=== PATIENT | female | born 1985 | race Caucasian/White ===

== ENCOUNTER 2017-03-10 11:51 | Inpatient (IN) | payer MEDICAID, OTHER ==
[~2017-03-10] VITALS: Ht 160 cm; Wt 72.5 kg
[2017-03-10 11:55] VITALS: BP 110/69; PULSE 84; RESP 18; TEMP 97.8; O2SAT 98
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
[2017-03-10 13:30] VITALS: BP 113/64; PULSE 72; RESP 16; O2SAT 97
[2017-03-10] MEDS ORDERED: ONDANSETRON HCL 4 MG/2 ML VIAL IM ONE (13:30)
[2017-03-10] MEDS ORDERED: SODIUM CHLORIDE 0.9% FLUSH 10 ML FLUSH IVF PRN (13:30)
[2017-03-10] MEDS ORDERED: MORPHINE SULFATE 4 MG/ML INJ IV PUSH ONE (13:30)
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
[2017-03-10] MEDS ORDERED: ONDANSETRON HCL 4 MG/2 ML VIAL IV PUSH ONE (14:00)
[2017-03-10 14:09] LABS: BASOPHIL % 0.1 % (0.0-2.0); EOSINOPHIL % 0.4 % (0.0-4.0); HEMO FLAGS DIFF FINAL; LYMPH % 11.9 % (9.0-44.0); LYMPHOCYTE # 1.5 TH/MM3 (1.0-4.8); MEAN CELL VOLUME 90.3 FL (80.0-100.0); MEAN CORPUSCULAR HEMOGLOBIN 31.6 PG (27.0-34.0); MONO % 7.4 % (0.0-8.0); NEUT % 80.2 % (16.0-70.0); PLATELET COUNT 185 TH/MM3 (150-450); RED BLOOD COUNT 4.43 MIL/MM3 (4.00-5.30); RED CELL DISTRIBUTION WIDTH 12.5 % (11.6-17.2); WHITE BLOOD COUNT 12.4 TH/MM3 (4.0-11.0)
[2017-03-10 14:12] LABS: CHLORIDE 108 MEQ/L (98-107); POTASSIUM 3.7 MEQ/L (3.5-5.1); SODIUM (NA) 142 MEQ/L (136-145)
[2017-03-10 14:16] LABS: APTT (PATIENT) 27.1 SEC (24.3-30.1); INTERNATIONAL NORMALIZED RATIO 0.9 RATIO; PROTHROMBIN TIME - PATIENT 10.3 SEC (9.8-11.6)
[2017-03-10 14:17] LABS: ANION GAP 10 MEQ/L (5-15); BICARBONATE 24.3 MEQ/L (21.0-32.0); BLOOD UREA NITROGEN 10 MG/DL (7-18)
[2017-03-10 14:20] LABS: ALT (GPT) 22 U/L (10-53); AST (GOT) 16 U/L (15-37); GLOMERULAR FILTRATION RATE 82 ML/MIN (>89)
[2017-03-10 14:22] LABS: TOTAL BILIRUBIN ADULT 0.4 MG/DL (0.2-1.0)
[2017-03-10 14:23] LABS: ALKALINE PHOSPHATASE 86 U/L (45-117)
[2017-03-10 14:25] VITALS: BP 113/64; PULSE 81; RESP 16; O2SAT 98
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
[2017-03-10 15:40] VITALS: BP 110/71; PULSE 89; RESP 16; O2SAT 100
[2017-03-10] MEDS ORDERED: ONDANSETRON HCL 4 MG/2 ML VIAL IV PUSH PRN (16:15)
[2017-03-10] MEDS: MORPHINE SULFATE 4 MG/ML INJ IV PUSH PRN ×2 (18:41→23:27)
[2017-03-10 19:00] VITALS: BP 127/70; PULSE 88; RESP 19; TEMP 98.7; O2SAT 99
[2017-03-10] MEDS ORDERED: HYDROmorphone HCL PF 1 MG/ML VIAL IV PUSH ONE (20:30)
[2017-03-10] MEDS: DOCUSATE SODIUM 50 MG/SENNA 8.6 MG TAB PO SCH (20:44)
[2017-03-11] VITALS (7 sets, daily range): BP systolic 100–120; BP diastolic 58–74; PULSE 66–84; RESP 16–19; TEMP 95.8–99.1; O2SAT 97–99
[2017-03-11] MEDS: MORPHINE SULFATE 4 MG/ML INJ IV PUSH PRN ×3 (02:21→10:47)
[2017-03-11] MEDS ORDERED: HYDROmorphone HCL PF 1 MG/ML VIAL IV PUSH ONE (03:15)
[2017-03-11] MEDS: DOCUSATE SODIUM 50 MG/SENNA 8.6 MG TAB PO SCH ×2 (08:38→21:50)
[2017-03-11] MEDS ORDERED: PHENYLEPH/NS 1000 MCG/10 ML SYR IV ONE (12:00)
[2017-03-11] MEDS ORDERED: ONDANSETRON HCL 4 MG/2 ML VIAL IV PUSH ONE (12:00)
[2017-03-11] MEDS ORDERED: HYDROmorphone HCL PF 1 MG/ML VIAL IV PUSH PRN (12:00)
[2017-03-11] MEDS ORDERED: PROPOFOL 200 MG/20 ML AMP IV ONE (12:00)
[2017-03-11] MEDS ORDERED: NEOSTIGMINE 3 MG/3 ML SYR IV ONE (12:00)
--- NOTE | 2017-03-11 12:02 | HHI.PR ---
Subjective Remarks No acute events overnight. Afebrile, vital signs stable. Patient complains of continued, throbbing pain in her right ankle. She states that the morphine does not help at all. She says that the Dilaudid helped previously but only for 10 minutes. Objective Vitals Vital Signs Date Time Temp Pulse Resp B/P Pulse Ox O2 Delivery O2 Flow Rate FiO2 03/11/17 08:00 98.5 82 18 114/66 98 03/11/17 04:00 97.8 71 16 120/71 97 03/11/17 00:00 97.4 72 16 100/58 98 03/10/17 19:00 98.7 88 19 127/70 99 03/10/17 15:40 89 16 110/71 100 03/10/17 14:25 81 16 113/64 98 03/10/17 13:30 72 16 113/64 97 03/10/17 13:30 16 I/O 03/10/17 03/10/17 03/10/17 03/11/17 03/11/17 03/11/17 07:00 15:00 23:00 07:00 15:00 23:00 Intake Total 960 ml 0 ml Balance 960 ml 0 ml Intake Oral 960 ml 0 ml # Voids 1 1 Result Diagram: 03/10/17 1355 03/10/17 1355 Objective Remarks GENERAL: This is a well-nourished, well-developed patient, in no apparent distress. SKIN: No rashes, ecchymoses or lesions. Cool and dry. HEAD: Atraumatic. Normocephalic. No temporal or scalp tenderness. EYES: Pupils equal round and reactive. Extraocular motions intact. No scleral icterus. No injection or drainage. ENT: Nose without bleeding, purulent drainage or septal hematoma. Throat without erythema, tonsillar hypertrophy or exudate. Uvula midline. Airway patent. NECK: Trachea midline. No JVD or lymphadenopathy. Supple, nontender, no meningeal signs. CARDIOVASCULAR: Regular rate and rhythm without murmurs, gallops, or rubs. RESPIRATORY: Clear to auscultation. Breath sounds equal bilaterally. No wheezes , rales, or rhonchi. GASTROINTESTINAL: Abdomen soft, non-tender, nondistended. No hepato-splenomegaly , or palpable masses. No guarding. MUSCULOSKELETAL: right ankle dressed, other 3Extremities without clubbing, cyanosis, or edema. No joint tenderness, effusion, or edema noted. No calf tenderness. Negative Homans sign bilaterally. Capillary refill less than 2 seconds and right toes. Able to wiggle all 5 toes. NEUROLOGICAL: Awake and alert. Cranial nerves II through XII intact. Motor and sensory grossly within normal limits. Five out of 5 muscle strength in all muscle groups. Normal A/P Problem List: (1) Trimalleolar fracture of ankle, closed Status: Acute Assessment and Plan 1. Trimalleolar fracture of the ankle Awaiting orthotopic evaluation Nonweightbearing Changed pain medication to Dilaudid as patient states the morphine is not working Nothing by mouth Discharge Planning Pending Ortho recommendations Problem Qualifiers (1) Trimalleolar fracture of ankle, closed: Qualified Code: S82.851A - Trimalleolar fracture of ankle, closed, right, initial encounter Vickie Knight MD R3 Mar 11, 2017 12:02
[2017-03-11] MEDS ORDERED: GENTAMICIN SULFATE 80 MG/2 ML VIAL ONE ×2 (12:08→13:38)
[2017-03-11] MEDS ORDERED: ceFAZolin INJ 1,000 MG VIAL ONE (12:08)
[2017-03-11] MEDS ORDERED: SODIUM CHLORID 0.9% 500 ML IV PRN (12:15)
[2017-03-11] MEDS ORDERED: METOPROLOL TARTRATE 25 MG TAB PO PRN (12:15)
[2017-03-11] MEDS ORDERED: CHLORHEXIDINE GLUCONATE 2 % 1 PACK (2 CLOTHS) TOPICAL PRN (12:15)
[2017-03-11] MEDS ORDERED: INSULIN HUMAN REGULAR 1,000 UNITS/10 ML VIAL SQ PRN (12:15)
[2017-03-11] MEDS ORDERED: POVIDONE IODINE 5% (ANTISEPSIS KIT) 4 APPLICATIONS EACH NARE PRN (12:15)
[2017-03-11] MEDS ORDERED: LACTATED RINGER'S 1000 ML IV PRN (12:15)
[2017-03-11] MEDS ORDERED: fentaNYL CITRATE 250 MCG/5 ML AMP ONE (13:10)
[2017-03-11] MEDS ORDERED: LACTULOSE SYRUP 20 GM/30 ML CUP PO PRN (13:30)
[2017-03-11] MEDS ORDERED: ZOLPIDEM TARTRATE 5 MG TAB PO PRN (13:30)
[2017-03-11] MEDS ORDERED: MORPHINE SULFATE 8 MG/ML INJ IV PUSH PRN (13:30)
[2017-03-11] MEDS ORDERED: NORC5TAB PO (13:30)
[2017-03-11] MEDS ORDERED: MAGNESIUM HYDROXIDE SUSP 30 ML CUP PO PRN (13:30)
[2017-03-11] MEDS ORDERED: oxyCODONE/ACETAMINOPHEN 5 MG/325 MG TAB PO PRN ×2 (13:30)
[2017-03-11] MEDS ORDERED: BISACODYL 10 MG SUPP RECTAL PRN (13:30)
[2017-03-11] MEDS ORDERED: PROMETHAZINE HCL 25 MG TAB PO PRN (13:30)
[2017-03-11] MEDS ORDERED: Post-op Orders (for Pharmacy) MISC XX ONE (13:30)
[2017-03-11] MEDS ORDERED: SENNOSIDES 8.6 MG TAB PO PRN (13:30)
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
--- NOTE | 2017-03-11 15:19 | PD.OP ---
cc: Noah Dewitt Jr., MD Operative Report Date of Surgery: Mar 11, 2017 Preoperative Diagnosis: Right trimalleolar ankle fracture Postoperative Diagnosis: Same Procedure: Open reduction internal fixation trimalleolar ankle fracture with syndesmotic fixation without fixation of the posterior lip. Anesthesia: Gen. Surgeon: Noah Dewitt Editor Dictionary(s): Staff Resident Surgeon: None Operation and Findings: Informed consent obtained, operative site was marked. The foot and ankle were seen and evaluated this morning. Soft tissue swelling had significantly improved and appeared to be ready for surgery. sHe was brought to the operating room and placed on the operating room table. sHe was given intravenous sedation , general endotracheal anesthesia. sHe received IV antibiotics and was placed in the lateral decubitus position. Foot and leg were prepped with alcohol, followed by Hibiclens, draped in usual sterile fashion. A time out procedure was preformed. At this point the leg was elevated. The tourniquet was inflated. The procedure began with a five inch incision over the lateral aspect fibula. A full thickness flap was carefully elevated. The fracture was identified , periosteum was elevated atthe fracture site. Attention was now turned to expose the distal end of the fibula and as much proximal as necessary to allow reduction and plate position. Attention was turned to the syndesmosis and under direct visualization the syndesmotic area was cleaned of any debris and irrigated. Using pointed reduction clamps the fibula was reduced and reduction was maintained using lag screw fixation. Reduction was confirmed under fluoroscopy. The rest of the fibula was neutralized using a lateral fibular plate with locking screws distally to support the metaphyseal comminution. An anterior medial incision was made at the level of the medial malleolus. A full-thickness flap was carefully elevated. The medial malleolus piece was slightly move out delayed to allow direct visualization of the medial clear space which was thoroughly irrigated and cleared of any debris. The medial malleolus was reduced using pointed reduction clamp and reduction was provisionally maintained with a K wire before drilling the proximal cortex for [place] fixation. Lag screw was placed in the medial malleolus Using fluoroscopy, the syndesmosis was stressed in the mortise view with the cotton test and external rotation stress test. There was widening of the medial clear space and asymmetry at the syndesmosis. Using pointed periarticular reduction clamp the syndesmosis was reduced and held, while it was fixed with 3.5mm lag screw directed from posterior lateral fibula to slight anterior medial aspect of the tibia. Multiplanar fluoroscopy confirmed well-aligned fracture. Final fluoroscopy was used to confirm a well-aligned fracture with well-placed hardware. Incision was thoroughly irrigated. Tourniquet was released. Hemostasis was confirmed. Fascia layer was closed 0 Vicryl, the skin and subcutaneous tissue closed with 3 -0 nylon, in vertical mattress fashion. Sterile dressings were applied the patient was placed into a well molded padded splint. The patient was transferred to the Recovery Room in stable condition. POSTP-OP PLAN OF ACTIVITY Antibiotics: Ancef Antiocoagulation: Lovenox Weight bearing status: NWB Dressing: splint in place Dispo: sc home when pain is controlled. Noah Dewitt Jr., MD Mar 11, 2017 15:18
[2017-03-11] MEDS ORDERED: *morphine SULFATE 8 MG/ML PERIprocedure ONLY ONE ×2 (16:11→16:19)
[2017-03-11] MEDS ORDERED: DO NOT ADM ANY ANTICOAGULANT DRUGS PRN (16:30)
--- NOTE | 2017-03-11 16:31 | RADRPT ---
EXAM DATE/TIME: 03/11/2017 14:51 [facility] COMPARISON: ANKLE RIGHT COMPLETE ([id number]), March 10, 2017, 13:00. INDICATIONS : Surgical repair. MEDICAL HISTORY : None. SURGICAL HISTORY : None. ENCOUNTER: Initial ACUITY: 1 day PAIN SCORE: Non-responsive. LOCATION: Right ankle. FINDINGS: 3 images are recorded digitally in the operating room with C-arm during internal fixation. Lateral f ibular plate, medial malleolar lag screw and distal fibular lag screw in place. One of the fibular p late screws traverses through the medial cortex of the distal tibia. CONCLUSION: Intraoperative images. Aj Haddad MD on March 11, 2017 at 16:28 Board Certified Radiologist. This report was verified electronically.
[2017-03-11] MEDS: KETOROLAC TROMETHAMINE 30 MG/ML (IVP) VIAL IVP SCH ×2 (17:00→21:50)
[2017-03-11] MEDS: SODIUM CHLORIDE 0.9% FLUSH 10 ML FLUSH IV FLUSH SCH (21:51)
[2017-03-12 03:35] VITALS: BP 102/60; PULSE 66; RESP 17; TEMP 97.8; O2SAT 97
[2017-03-12] MEDS: ENOXAPARIN SODIUM 30 MG/0.3 ML SYRINGE SQ SCH ×2 (04:00→15:58)
[2017-03-12 06:46] LABS: BICARBONATE 27.9 MEQ/L (21.0-32.0); POTASSIUM 4.2 MEQ/L (3.5-5.1)
[2017-03-12] MEDS: KETOROLAC TROMETHAMINE 30 MG/ML (IVP) VIAL IVP SCH ×3 (06:52→15:58)
[2017-03-12 07:37] VITALS: BP 103/61; PULSE 75; RESP 18; TEMP 99; O2SAT 99
[2017-03-12] MEDS: SODIUM CHLORIDE 0.9% FLUSH 10 ML FLUSH IV FLUSH SCH (09:00)
[2017-03-12] MEDS: DOCUSATE SODIUM 50 MG/SENNA 8.6 MG TAB PO SCH (09:50)
[2017-03-12] MEDS: SODIUM CHLORIDE 0.9% FLUSH 10 ML FLUSH IV FLUSH PRN ×2 (11:23→15:57)
[2017-03-12 11:54] LABS: AUTOMATED NEUTROPHIL # 6.8 TH/MM3 (1.8-7.7); BASOPHIL % 0.3 % (0.0-2.0); EOSINOPHIL # 0.1 TH/MM3 (0-0.4); EOSINOPHIL % 0.5 % (0.0-4.0); HEMATOCRIT 35.7 % (35.0-46.0); HEMO FLAGS DIFF FINAL; LYMPHOCYTE # 2.4 TH/MM3 (1.0-4.8); MEAN CELL VOLUME 92.5 FL (80.0-100.0); MEAN CORPUSCULAR HEMOGLOBIN 31.6 PG (27.0-34.0); MEAN CORPUSCULAR HGB CONC 34.2 % (32.0-36.0); MONO % 11.5 % (0.0-8.0); NEUT % 64.7 % (16.0-70.0); PLATELET COUNT 172 TH/MM3 (150-450); RED BLOOD COUNT 3.86 MIL/MM3 (4.00-5.30); RED CELL DISTRIBUTION WIDTH 13.5 % (11.6-17.2); WHITE BLOOD COUNT 10.5 TH/MM3 (4.0-11.0)
[2017-03-12 12:00] VITALS: BP 112/63; PULSE 72; RESP 18; TEMP 98.3; O2SAT 100
[2017-03-12] MEDS ORDERED: OXYC1TAB63 PO (12:36)
[2017-03-12] MEDS ORDERED: GETGO ROLLING W1 MI1 (12:37)
--- NOTE | 2017-03-12 12:37 | HHI.DCPOC ---
Discharge Care Plan Diagnosis: (1) Trimalleolar fracture of ankle, closed Goals to Promote Your Health * To prevent worsening of your condition and complications * To maintain your health at the optimal level Directions to Meet Your Goals Take your medications as prescribed Follow your dietary instruction Follow activity as directed Keep your appointments as scheduled Take your immunizations and boosters as scheduled If your symptoms worsen call your PCP, if no PCP go to Urgent Care Center or Emergency Room Smoking is Dangerous to Your Health. Avoid second hand smoke Call the 24-hour hour crisis hotline for domestic abuse at Sariah Chen MD Mar 12, 2017 12:37
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
[2017-03-12 16:00] VITALS: BP 100/54; PULSE 66; RESP 18; TEMP 97.7; O2SAT 98
--- NOTE | 2017-03-12 18:10 | HHI.PR ---
Addendum to Inpatient Note Additional Information I was contacted by Dr. Chen, who was notified by nursing that the patient's name was spelled incorrectly in the EMR. The patient had been given a prescription for oxycodone-acetaminophen, and would not be able to fill it at the pharmacy due to the name not matching her ID. Dr. Chen was unable to return to the floor and asked if I would be able to re-write the prescription. 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 The correct spelling of the patient' s name is Trinidad Hemphill Song (her last name was spelled Meghan in [employer]). I spoke with the patient in the presence of the charge nurse. The patient confirmed the correct spelling of her name. I reviewed the patient's chart and see that she is POD #1 from [facility] of trimalleolar ankle fracture. The prescription was hand-written by me exactly as Dr. Chen had initially prescribed (1 tab PO q4 hours prn moderate to severe pain, #40, no refills). The charge nurse will work with admitting to correct the spelling of the patient's name in [employer]. Carlos A Sandoval MD Mar 12, 2017 18:10
[2017-03-12] MEDS ORDERED: MULTIVITAMINS/MINERALS THERAPEUTIC TAB PO SCH (21:00)
== END 2017-03-12 18:34 | disposition home or self-care (01) | DRG 494 ==
LOC: PHEFT 11:51 → PHEDA 14:26 → N06B 18:17
PROVIDERS: ADMIT Family Medicine; ATTEND Family Medicine
PROC: 0QSG04Z Reposition Right Tibia with Internal Fixation Device, Open Approach (ICD-10-PCS; 2017-03-11)
PROC: 0SSF04Z Reposition Right Ankle Joint with Internal Fixation Device, Open Approach (ICD-10-PCS; 2017-03-11)
PROC: 0QSJ04Z Reposition Right Fibula with Internal Fixation Device, Open Approach (ICD-10-PCS; principal; 2017-03-11 13:11)
DX: S82.851A Displaced trimalleolar fracture of right lower leg, initial encounter for closed fracture (principal); F17.210 Nicotine dependence, cigarettes, uncomplicated; S93.431A Sprain of tibiofibular ligament of right ankle, initial encounter; W16.722A Jumping or diving from boat striking bottom causing other injury, initial encounter
CPT/HCPCS: 73590; 73610; 76000; 80048; 80053; 85025; 85610; 85730; 94150; 96374; 96375; C1713; J0690; J1170; J1580; J1650; J1885; J2270; J2370; J2405; J2710; J3010

== ENCOUNTER 2017-03-19 13:34 | Emergency (ER) | payer MEDICAID, OTHER ==
[~2017-03-19] VITALS: Ht 160 cm; Wt 70.0 kg
[~2017-03-19 13:34] MED LIST: GETGO ROLLING W1 MI1; OXYC1TAB63 PO
[2017-03-19 13:36] VITALS: BP 122/80; PULSE 80; RESP 20; TEMP 98.8; O2SAT 98
--- NOTE | 2017-03-19 15:49 | PD ---
HPI Chief Complaint: Medical Clearance Time Seen by Provider: 15:49 Travel History International Travel<30 days: No Contact w/Intl Traveler<30days: No Traveled to known affect area: No History of Present Illness HPI 31-year-old female presents to emergency department requesting medication refill of oxycodone. She had right ankle surgery on March [address] Dewitt 's office and was told to come to the emergency room for pain medication refill. She has 1 pill of oxycodone left and is still having significant pain. She denies fever, vomiting. Denies paresthesias, loss of sensation to the affected extremity. Has no other medical complaints. No known allergies. No other modifying factors or associated signs and symptoms. PFSH Past Medical History ?: Not Social History Alcohol Use: Yes (WEEKENDS) Tobacco Use: Yes ("BLACK & MILDS") Substance Use: No Allergies-Medications (Allergen,Severity, Reaction): Coded Allergies: No Known Allergies (Unverified , 03/19/17) Reported Meds & Prescriptions Reported Meds & Active Scripts Active Oxycodone-Acetaminophen 5-325 mg Tab 1 Tab PO Q4H PRN Oxycodone-Acetaminophen 5-325 mg Tab 1 Tab PO Q6H PRN Review of Systems Except as stated in HPI: all other systems reviewed are Neg Physical Exam Narrative GENERAL: Well-nourished, well-developed female patient, in no acute distress SKIN: Warm and dry. HEAD: Atraumatic. Normocephalic. EYES: Pupils equal and round. No scleral icterus. No injection or drainage. ENT: Mucosa pink and moist. Airway patent. NECK: Trachea midline. CARDIOVASCULAR: Regular rate and rhythm. No murmur appreciated. RESPIRATORY: No accessory muscle use. Clear to auscultation. Breath sounds equal bilaterally. GASTROINTESTINAL: Flat. MUSCULOSKELETAL: Right lower extremity; toes are pink and warm and with sensory intact. No obvious deformities. No clubbing. No cyanosis. No edema. NEUROLOGICAL: Awake and alert. Oriented 3. No obvious cranial nerve deficits. Motor grossly within normal limits. Normal speech. PSYCHIATRIC: Appropriate mood and affect; insight and judgment normal. Data Data Last Documented VS Vital Signs Date Time Temp Pulse Resp B/P Pulse Ox O2 Delivery O2 Flow Rate FiO2 03/19/17 18:00 84 16 119/63 100 Room Air 03/19/17 13:36 98.8 Orders Electrocardiogram (03/19/17 16:07) Basic Metabolic Panel (Bmp) (03/19/17 16:07) Complete Blood Count With Diff (03/19/17 16:07) Chest, Single Ap (03/19/17 16:07) Iv Access Insert/Monitor (03/19/17 16:07) Prothrombin Time / Inr (Pt) (03/19/17 16:07) Act Partial Throm Time (Ptt) (03/19/17 16:07) D-Dimer (03/19/17 16:07) Beta Hcg (Quant/Titer) (03/19/17 16:20) Ct Pulmonary Angiogram (03/19/17 ) Iohexol 350 Inj (Omnipaque 350 Inj) (03/19/17 21:40) Labs Laboratory Tests Test 03/19/17 16:19 White Blood Count 8.1 TH/MM3 Red Blood Count 4.08 MIL/MM3 Hemoglobin 12.7 GM/DL Hematocrit 37.3 % Mean Corpuscular Volume 91.4 FL Mean Corpuscular Hemoglobin 31.1 PG Mean Corpuscular Hemoglobin 34.0 % Concent Red Cell Distribution Width 12.7 % Platelet Count 307 TH/MM3 Mean Platelet Volume 8.0 FL Neutrophils (%) (Auto) 59.8 % Lymphocytes (%) (Auto) 24.1 % Monocytes (%) (Auto) 13.9 % Eosinophils (%) (Auto) 1.8 % Basophils (%) (Auto) 0.4 % Neutrophils # (Auto) 4.9 TH/MM3 Lymphocytes # (Auto) 2.0 TH/MM3 Monocytes # (Auto) 1.1 TH/MM3 Eosinophils # (Auto) 0.1 TH/MM3 Basophils # (Auto) 0.0 TH/MM3 CBC Comment DIFF FINAL Differential Comment Prothrombin Time 10.7 SEC Prothromb Time International 1.0 RATIO Ratio Activated Partial 30.8 SEC Thromboplast Time D-Dimer Quantitative (PE/DVT) 2.41 MG/L FEU Sodium Level 138 MEQ/L Potassium Level 4.4 MEQ/L Chloride Level 102 MEQ/L Carbon Dioxide Level 28.3 MEQ/L Anion Gap 8 MEQ/L Blood Urea Nitrogen 11 MG/DL Creatinine 0.72 MG/DL Estimat Glomerular Filtration 94 ML/MIN Rate Random Glucose 89 MG/DL Calcium Level 9.2 MG/DL Human Chorionic Gonadotropin, LESS THAN 1 Quant MIU/ML MDM Medical Decision Making Medical Screen Exam Complete: Yes Emergency Medical Condition: Yes Medical Record Reviewed: Yes Differential Diagnosis Medications refilled, pain management, postop pain; PE Narrative Course 31-year-old female presents for medication refill for oxycodone post right ankle surgery March 12. Dr. Dewitt is her orthopedic surgeon. She has a follow- up appointment on March 26. She called his office for refill pain medication and was told to come to the ER. Dr. Dow agreed to give 5 pills and for the patient to be instructed to follow-up with orthopedics for continued pain management. This was discussed with the patient and she verbalized understanding and agreement. Oxycodone and ibuprofen prescribed for home. 1610: I was discharging the patient at this time, discussing discharge instructions, and the patient stated that she's been having chest pain and shortness of breath and asked if this was normal. She says the pain is sharp shooting pain that is intermittent and feels like she can't catch her breath during the chest pain. She denies chest pain or shortness of breath at this time. I discussed this with Dr. Dow, my attending physician, and he recommended EKG, chest x-ray, CBC, BMP, coags, d-dimer, and HCG. Orders centered. 1830: Patient was moved to a medical bed at this time. Report given to Dr. Arizmendi. See his note for patient disposition. Diagnosis Primary Impression: Medication refill Referrals: Noah Dewitt Jr., MD Primary Care Physician Patient Instructions: General Instructions, Medication Refill, ED Additional Instructions: Tylenol or ibuprofen as directed and as needed for pain and inflammation Rest, ice, compress, and elevate extremity to decrease pain and inflammation Refer to prior discharge instructions for postop care Follow-up with primary care provider Follow-up with Dr. Dewitt, orthopedic surgeon Return to the emergency department immediately with worsening of symptoms Med/Other Pt SpecificInfo: Prescription(s) given Scripts Oxycodone-Acetaminophen 5-325 mg Tab1 Tab PO Q4H PRN (moderate to severe pain) # 20 TAB Ref 0 Prov:Pankaj Arizmendi MD 03/19/17 Oxycodone-Acetaminophen 5-325 mg Tab1 Tab PO Q6H PRN (PAIN) #5 TAB Ref 0 Prov:Carlos A Quezada MD 03/19/17 Disposition: 01 DISCHARGE HOME Condition: Stable Rosa Parrish [facility] Mar 19, 2017 15:49
[2017-03-19] MEDS ORDERED: OXYC1TAB63 PO ×2 (15:50→22:42)
[2017-03-19] MEDS ORDERED: IBUP800T23 PO (15:52)
[2017-03-19 16:45] LABS: AUTOMATED NEUTROPHIL # 4.9 TH/MM3 (1.8-7.7); BASOPHIL % 0.4 % (0.0-2.0); EOSINOPHIL # 0.1 TH/MM3 (0-0.4); EOSINOPHIL % 1.8 % (0.0-4.0); HEMATOCRIT 37.3 % (35.0-46.0); HEMO FLAGS DIFF FINAL; LYMPH % 24.1 % (9.0-44.0); MEAN CELL VOLUME 91.4 FL (80.0-100.0); MEAN CORPUSCULAR HEMOGLOBIN 31.1 PG (27.0-34.0); MONO % 13.9 % (0.0-8.0); NEUT % 59.8 % (16.0-70.0); PLATELET COUNT 307 TH/MM3 (150-450); RED BLOOD COUNT 4.08 MIL/MM3 (4.00-5.30); RED CELL DISTRIBUTION WIDTH 12.7 % (11.6-17.2); WHITE BLOOD COUNT 8.1 TH/MM3 (4.0-11.0)
[2017-03-19 17:11] LABS: APTT (PATIENT) 30.8 SEC (24.3-30.1); PROTHROMBIN TIME - PATIENT 10.7 SEC (9.8-11.6)
[2017-03-19 17:34] LABS: BICARBONATE 28.3 MEQ/L (21.0-32.0); POTASSIUM 4.4 MEQ/L (3.5-5.1)
[2017-03-19 18:00] VITALS: BP 119/63; PULSE 84; RESP 16; O2SAT 100
--- NOTE | 2017-03-19 18:41 | RADRPT ---
EXAM DATE/TIME: 03/19/2017 16:19 [facility] COMPARISON: No previous studies available for comparison. INDICATIONS : Short of breath MEDICAL HISTORY : None. SURGICAL HISTORY : None. ENCOUNTER: Initial ACUITY: 3 days PAIN SCORE: 0/10 LOCATION: chest FINDINGS: A single view of the chest demonstrates the lungs to be symmetrically aerated without evidence of mas s, infiltrate or effusion. The cardiomediastinal contours are unremarkable. Osseous structures are intact. CONCLUSION: No acute disease. Segundo Her MD on March 19, 2017 at 18:40 Board Certified Radiologist. This report was verified electronically.
[2017-03-19 20:55] LABS: BETA HCG QUANT LESS THAN 1 MIU/ML (0-5)
[2017-03-19] MEDS ORDERED: IOHEXOL 350 MG/ML 10 ML VIAL (for RAD DIAG) IV ONE (21:40)
--- NOTE | 2017-03-19 22:04 | RADRPT ---
EXAM DATE/TIME: 03/19/2017 21:26 [place] COMPARISON: No previous studies available for comparison. INDICATIONS : Shortness of breath. Elevated D-Dimer. IV CONTRAST: 75 cc Omnipaque 350 (iohexol) IV RADIATION DOSE: 7.9 CTDIvol (mGy) MEDICAL HISTORY : None SURGICAL HISTORY : None. ENCOUNTER: Initial ACUITY: 1 day PAIN SCALE: 6/10 LOCATION: Bilateral chest TECHNIQUE: Volumetric scanning of the chest was performed using a pulmonary embolism protocol MIP images were re constructed. Using automated exposure control and adjustment of the mA and/or kV according to patien t size, radiation dose was kept as low as reasonably achievable to obtain optimal diagnostic quality images. DICOM format image data is available electronically for review and comparison. Follow-up recommendations for incidentally detected pulmonary nodules are based at a minimum on nodul e size and patient risk factors according to Fleischner Society Guidelines. FINDINGS: PULMONARY ARTERIES: No filling defects are seen in the pulmonary arteries through the segmental level. LUNGS: There is no consolidation or pneumothorax . No concerning pulmonary nodule is visualized. PLEURAE: There is no pleural thickening or pleural effusion. MEDIASTINUM: There is good visualization of the great vessels of the middle mediastinum. No evidence of mediastin al or hilar adenopathy/mass. MUSCULOSKELETAL: Within normal limits for patient age. MISCELLANEOUS: The visualized upper abdominal organs demonstrate no acute abnormality. CONCLUSION: Normal examination for a patient of this age. Kyle Trujillo MD on March 19, 2017 at 22:01 Board Certified Radiologist. This report was verified electronically.
--- NOTE | 2017-03-19 22:43 | PD ---
Data Data Last Documented VS Vital Signs Date Time Temp Pulse Resp B/P Pulse Ox O2 Delivery O2 Flow Rate FiO2 03/19/17 18:00 84 16 119/63 100 Room Air 03/19/17 13:36 98.8 Orders Electrocardiogram (03/19/17 16:07) Basic Metabolic Panel (Bmp) (03/19/17 16:07) Complete Blood Count With Diff (03/19/17 16:07) Chest, Single Ap (03/19/17 16:07) Iv Access Insert/Monitor (03/19/17 16:07) Prothrombin Time / Inr (Pt) (03/19/17 16:07) Act Partial Throm Time (Ptt) (03/19/17 16:07) D-Dimer (03/19/17 16:07) Beta Hcg (Quant/Titer) (03/19/17 16:20) Ct Pulmonary Angiogram (03/19/17 ) Iohexol 350 Inj (Omnipaque 350 Inj) (03/19/17 21:40) Labs Laboratory Tests Test 03/19/17 16:19 White Blood Count 8.1 TH/MM3 Red Blood Count 4.08 MIL/MM3 Hemoglobin 12.7 GM/DL Hematocrit 37.3 % Mean Corpuscular Volume 91.4 FL Mean Corpuscular Hemoglobin 31.1 PG Mean Corpuscular Hemoglobin 34.0 % Concent Red Cell Distribution Width 12.7 % Platelet Count 307 TH/MM3 Mean Platelet Volume 8.0 FL Neutrophils (%) (Auto) 59.8 % Lymphocytes (%) (Auto) 24.1 % Monocytes (%) (Auto) 13.9 % Eosinophils (%) (Auto) 1.8 % Basophils (%) (Auto) 0.4 % Neutrophils # (Auto) 4.9 TH/MM3 Lymphocytes # (Auto) 2.0 TH/MM3 Monocytes # (Auto) 1.1 TH/MM3 Eosinophils # (Auto) 0.1 TH/MM3 Basophils # (Auto) 0.0 TH/MM3 CBC Comment DIFF FINAL Differential Comment Prothrombin Time 10.7 SEC Prothromb Time International 1.0 RATIO Ratio Activated Partial 30.8 SEC Thromboplast Time D-Dimer Quantitative (PE/DVT) 2.41 MG/L FEU Sodium Level 138 MEQ/L Potassium Level 4.4 MEQ/L Chloride Level 102 MEQ/L Carbon Dioxide Level 28.3 MEQ/L Anion Gap 8 MEQ/L Blood Urea Nitrogen 11 MG/DL Creatinine 0.72 MG/DL Estimat Glomerular Filtration 94 ML/MIN Rate Random Glucose 89 MG/DL Calcium Level 9.2 MG/DL Human Chorionic Gonadotropin, LESS THAN 1 Quant MIU/ML MDM Supervised Visit with MARCELLUS: Yes Narrative Course The history, exam, and medical decision-making in the associated mid-level provider note were completed with my assistance. I reviewed and agree with the findings presented. I attest that I had a [id number] encounter with the patient on the same day, and personally performed and documented my assessment and findings in the medical record. *My assessment and Findings: 31-year-old woman presents emergent part of ongoing pain in her right foot. Also noted to have chest pain following orthopedic surgery. D-dimer is elevated. CT is negative. Recommend outpatient follow-up. Diagnosis Primary Impression: Medication refill Referrals: Noah Dewitt Jr., MD Primary Care Physician Patient Instructions: General Instructions, Medication Refill, ED Departure Forms: Tests/Procedures Additional Instruction: Tylenol or ibuprofen as directed and as needed for pain and inflammation Rest, ice, compress, and elevate extremity to decrease pain and inflammation Refer to prior discharge instructions for postop care Follow-up with primary care provider Follow-up with Dr. Dewitt, orthopedic surgeon Return to the emergency department immediately with worsening of symptoms Scripts Oxycodone-Acetaminophen 5-325 mg Tab1 Tab PO Q4H PRN (moderate to severe pain) # 20 TAB Ref 0 Prov:Pankaj Arizmendi MD 03/19/17 Oxycodone-Acetaminophen 5-325 mg Tab1 Tab PO Q6H PRN (PAIN) #5 TAB Ref 0 Prov:Carlos A Quezada MD 03/19/17 Disposition: 01 DISCHARGE HOME Condition: Stable Pankaj Arizmendi MD Mar 19, 2017 22:43
--- NOTE | 2017-03-20 15:47 | EKG ---
Date Performed: 03/19/2017 Time Performed: 16:23:26 PTAGE: 31 years EKG: Sinus rhythm NORMAL ECG NO PREVIOUS TRACING DOCTOR: Stephanie Last Interpretating Date/Time 03/20/2017 15:42:00
== END 2017-03-19 23:05 | disposition home or self-care (01) ==
LOC: NEPD 13:34
DX: Z76.0 Encounter for issue of repeat prescription (principal); R07.9 Chest pain, unspecified; M79.671 Pain in right foot; R06.02 Shortness of breath; F17.200 Nicotine dependence, unspecified, uncomplicated
CPT/HCPCS: 71010; 71275; 80048; 84702; 85025; 85379; 85610; 85730; 93005; 99285; Q9967

== ENCOUNTER → 2017-05-09 | Outpatient (CLI) | payer MEDICAID, OTHER ==
[~2017-05-09] MED LIST changes: -GETGO ROLLING W1 MI1
== END ==
LOC: HORT 10:19
PROVIDERS: ATTEND Orthopaedic Surgery
DX: S82.854A Nondisplaced trimalleolar fracture of right lower leg, initial encounter for closed fracture (principal); X58.XXXA Exposure to other specified factors, initial encounter
CPT/HCPCS: E0113; L2114